=== PATIENT | female | born 1965 | race Caucasian/White ===

== ENCOUNTER 2016-11-20 04:17 | Emergency (ER) | payer OTHER ==
[~2016-11-20] VITALS: Ht 162.6 cm; Wt 66.5 kg
[~2016-11-20 04:17] MED LIST: ALBU8.5H3 INH; BECL8.7A INH; DESL1TBM2 PO; PRED20TA PO
[2016-11-20 04:26] VITALS: Ht 162.6 cm; Wt 66.5 kg
[2016-11-20] MEDS ORDERED: ONDANSETRON (ODT) 4 MG TAB ODT STA (04:44)
[2016-11-20] MEDS ORDERED: KETOROLAC 60 MG INJ IM STA (04:44)
[2016-11-20 04:51] LABS: URINE BLOOD (Dip) POC 2+ (NEGATIVE)
[2016-11-20 05:02] LABS: URINE BLOOD (Dip) POC 2+ (NEGATIVE)
[2016-11-20] MEDS ORDERED: ONDA4TAB14 PO (05:24)
[2016-11-20] MEDS ORDERED: IBUP-1542 PO (05:24)
[2016-11-20] MEDS ORDERED: BENZ100C70 PO (05:24)
--- NOTE | 2016-11-20 05:29 | ERD ---
ER Documentation Chief Complaint Date/Time DATE: 11/20/16 TIME: 05:27 Chief Complaint fever,body aches and pain,chills,KHAN,sore throat,nausea,denies abd pain, HPI 81-year-old female patient with no significant past medical history presents the ED complaining of fever, body aches, headache, sore throat, dry cough that started 2 days ago. Patient states that she tried taking Mucinex which did not help with her symptoms. States that she was in [facility] for 3 weeks and did not come back until last night. Denies any sick contacts. Reports that she is nauseous but denies any vomiting. Denies any chest pain, shortness of breath, wheezing, abdominal pain. ROS All systems reviewed and are negative except as per history of present illness. Medications Home Meds Active Scripts Benzonatate* (Tessalon Perle*) 100 Mg Capsule, 100 MG PO Q8H Y for COUGH, #20 CAP Prov:EYAL FONTANEZ PA-C 11/20/16 Ondansetron (Ondansetron Odt) 4 Mg Tab.rapdis, 4 MG PO Q6H Y for NAUSEA AND/OR VOMITING, #10 TAB Prov:EYAL FONTANEZ PA-C 11/20/16 Ibuprofen* (Motrin*) 600 Mg Tab, 600 MG PO Q6, #30 TAB Prov:EYAL FONTANEZ PA-C 11/20/16 P-Ephed Sul/Desloratadine (Clarinex-D 12 Hour Tablet) 2.5-120 Mg Tbmp.12hr, 1 TAB PO Q12, #10 TAB.SA Prov:CARRIE PORTER 05/08/15 Prednisone* (Prednisone*) 20 Mg Tab, 20 MG PO DAILY, #6 TAB Prov:CARRIE PORTER 05/08/15 Beclomethasone Dip* (Qvar 40*) 7.3 Gm Inha, 2 PUFF INH BID, #1 INHALER Prov:CARRIE PORTER 05/08/15 Albuterol Sulfate* (Proair HFA*) 8.5 Gm Hfa.aer.ad, 2 PUFF INH Q4H Y for WHEEZING AND SOB, #1 INHALER Prov:CARRIE PORTER 05/08/15 Allergies Allergies: Coded Allergies: No Known Allergy (Unverified , 05/08/15) PMhx/Soc Medical and Surgical Hx: pt denies Medical Hx, pt denies Surgical Hx Hx Respiratory Disorders: Yes Hx Alcohol Use: No Hx Substance Use: No Hx Tobacco Use: No Smoking Status: Never smoker Physical Exam Vitals Vital Signs Date Time Temp Pulse Resp B/P Pulse Ox O2 Delivery O2 Flow Rate FiO2 11/20/16 04:26 100.9 101 18 133/91 95 Physical Exam Const: Mdu-onz-rcptflasp, well-nourished. In no acute distress. Head: Atraumatic, normocephalic Eyes: Normal Conjunctiva without injection. No purulent discharge. PERRL. EOMI ENT: Normal external ear. Ear canal without erythema. Tympanic membrane pearly ryan without effusion or bulging. Nasal canal clear with normal turbinates. Moist oropharynx without tonsillar exudates. Non-erythematous pharynx. Uvula midline. No drooling. No trismus. Neck: Full range of motion. No meningismus. No cervical lymphadenopathy. Resp: Clear to auscultation bilaterally. No wheezing, rhonchi, rales, or crackles. No accessory muscle use. No retractions. Cardio: Regular rate and rhythm. No murmurs, rubs or gallops. Abd: Soft, non tender, non distended. Normal bowel sounds. No palpable masses. No rebound tenderness. No guarding. Skin: No petechiae or rashes Back: No midline tenderness. No CVA tenderness. Ext: No cyanosis, or edema. Neur: Awake and alert. Psych: Normal Mood and Affect Results 24 hrs Laboratory Tests Test 11/20/16 04:57 11/20/16 05:07 Bedside Urine pH (LAB) 6.0 6.0 Bedside Urine Protein (LAB) Negative Negative Bedside Urine Glucose (UA) Negative Negative Bedside Urine Ketones (LAB) Negative Negative Bedside Urine Blood 2+ 2+ Bedside Urine Nitrite (LAB) Negative Negative Bedside Urine Leukocyte Esterase (L Trace Trace Current Medications Medications (Trade) Dose Ordered Sig/Peggy Route PRN Reason Start Time Stop Time Status Last Admin Dose Admin Ketorolac Tromethamine (Toradol) 60 mg ONCE STAT IM 11/20/16 04:44 11/20/16 04:45 DC 11/20/16 04:52 Ondansetron HCl (Zofran Odt) 4 mg ONCE STAT ODT 7/24/17 04:44 11/20/16 04:45 DC 11/20/16 04:52 Procedures/MDM 51-year-old female patient with no sniffing a past medical history presents the ED complaining of dry cough, sore throat, headache, fever, body aches that started 2 days ago. Patient has a fever of 100.9. Patient was slightly tachycardic at 101. Toradol, Zofran was ordered to further treat patient with improvement. Patient likely has symptoms insistent with viral etiology.This patient presents to the ED with symptoms consistent with a viral acute upper respiratory infection. Patient is afebrile and has normal vital signs. Patient 's physical exam include lungs which were clear to auscultation and a normal pulse oximetry. There is a low suspicion for pneumonia, pneumothorax, mononucleosis, pulmonary embolism, epiglottitis, otitis media, otitis externa, viral/strep pharyngitis, sinusitis, peritonsillar abscess, mastoiditis, retropharyngeal abscess, meningitis, sepsis, acute abdomen or other emergent conditions. Fluids, rest, and symptomatic treatment are recommended for the management of patient's symptoms. Discharge medications: Tessalon Perles, Zofran, ibuprofen Follow up with primary care physician in 1-2 days. Instructed patient to return to the ED sooner for any worsening symptoms. Patient's questions were answered. Patient understood and agreed with discharge plan. Patient discharged stable. Departure Diagnosis: Primary Impression: Body aches Additional Impressions: Cough Headache Headache type: unspecified Headache chronicity pattern: unspecified pattern Intractability: not intractable Qualified Code: R51 - Nonintractable headache, unspecified chronicity pattern, unspecified headache type Sore throat Condition: Stable Patient Instructions: Viral Syndrome (Adult) Referrals: COMMUNITY CLINICS YOU HAVE RECEIVED A MEDICAL SCREENING EXAM AND THE RESULTS INDICATE THAT YOU DO NOT HAVE A CONDITION THAT REQUIRES URGENT TREATMENT IN THE EMERGENCY DEPARTMENT. FURTHER EVALUATION AND TREATMENT OF YOUR CONDITION CAN WAIT UNTIL YOU ARE SEEN IN YOUR DOCTORS OFFICE WITHIN THE NEXT 1-2 DAYS. IT IS YOUR RESPONSIBILITY TO MAKE AN APPOINTMENT FOR FOLOW-UP CARE. IF YOU HAVE A PRIMARY DOCTOR --you should call your primary doctor and schedule an appointment IF YOU DO NOT HAVE A PRIMARY DOCTOR YOU CAN CALL OUR PHYSICIAN REFERRAL HOTLINE AT IF YOU CAN NOT AFFORD TO SEE A PHYSICIAN YOU CAN CHOSE FROM THE FOLLOWING [facility] [address] [facility] [address] [facility] [address] [facility] [address] [facility] [address] [facility]. [facility] [address] [facility]. [facility] YOU HAVE RECEIVED A MEDICAL SCREENING EXAM AND THE RESULTS INDICATE THAT YOU DO NOT HAVE A CONDITION THAT REQUIRES URGENT TREATMENT IN THE EMERGENCY DEPARTMENT. FURTHER EVALUATION AND TREATMENT OF YOUR CONDITION CAN WAIT UNTIL YOU ARE SEEN IN YOUR DOCTORS OFFICE WITHIN THE NEXT 1-2 DAYS. IT IS YOUR RESPONSIBILITY TO MAKE AN APPOINTMENT FOR FOLOW-UP CARE. IF YOU HAVE A PRIMARY DOCTOR --you should call your primary doctor and schedule and appointment IF YOU DO NOT HAVE A PRIMARY DOCTOR YOU CAN CALL OUR PHYSICIAN REFERRAL HOTLINE AT . IF YOU CAN NOT AFFORD TO SEE A PHYSICIAN YOU CAN CHOSE FROM THE FOLLOWING [facility]: [facility] [address] [place] [address] [facility] [address] [place], [place] [id number] [place] [address] [address] [place] [address] [facility] URGENT CARE/SPECIALTIES Additional Instructions: Llame al doctor MAANA y lubna cathryn LEXX PARA DENTRO DE 2-3 DE OLIVEIRA.Dgale a la secretaria que nosotros le instruimos hacer esta lexx.Avise o llame si yang condicin se empeora antes de la lexx. Regresa aqui si peor o no mejor. EYAL FONTANEZ PA-C Nov 20, 2016 05:29
[2016-11-20 06:04] VITALS: BP 11/70; PULSE 82; RESP 16; TEMP 99.3
[2016-11-25 16:12] LABS: URINE BLOOD (Dip) POC 2+ (NEGATIVE)
[2016-11-25 16:13] LABS: URINE BLOOD (Dip) POC 2+ (NEGATIVE)
== END 2016-11-20 06:05 | disposition home or self-care (01) ==
LOC: FTE 04:17
DX: R05 Cough (principal); R51 Headache; J02.9 Acute pharyngitis, unspecified
CPT/HCPCS: 81003; 96372; J1885; Z7502; Z7610